=== PATIENT | male | born 1960 | race Caucasian/White ===

== ENCOUNTER → 2018-01-11 | Outpatient (CLI) | payer BC ==
[2018-01-11] MEDS: IOHEXOL 240 MG/ML 50ML VIAL. PO (13:00)
[2018-01-11] MEDS: IOHEXOL 300 MG/ML 100ML VIAL. IV (13:00)
== END | disposition home or self-care (01) ==
LOC: CT 12:23
DX: K57.30 Diverticulosis of large intestine without perforation or abscess without bleeding (principal); K76.0 Fatty (change of) liver, not elsewhere classified; D18.09 Hemangioma of other sites
CPT/HCPCS: 74177; Q9966; Q9967